=== PATIENT | female | born 1990 | race Caucasian/White ===

== ENCOUNTER 2022-05-06 17:36 | Emergency (ER) | payer MEDICAID ==
[~2022-05-06] VITALS: Ht 167.6 cm; Wt 52.2 kg
--- NOTE | 2022-05-06 17:55 | NUR ---
TO ER BED 4, C/O ON & OFF SOB AT NIGHT X 1 MONTH, AAOX3, BREATHING EVEN AND NON LABORED, AWAITING MD FLORES
[2022-05-06] MEDS ORDERED: IPRATROPIUM NEB FS 0.5 MG/2.5 ML AMPUL.NEB ONE (18:22)
[2022-05-06] MEDS ORDERED: ALBUTEROL FS 2.5 MG/3 ML VIAL.NEB ONE (18:22)
[2022-05-06] MEDS ORDERED: ALBUTEROL FS 2.5 MG/3 ML VIAL.NEB CONTNEB ONE (18:30)
[2022-05-06] MEDS ORDERED: IPRATROPIUM NEB FS 0.5 MG/2.5 ML AMPUL.NEB NEB ONE (18:30)
[2022-05-06] MEDS ORDERED: predniSONE 20 MG TABLET PO ONE (18:30)
[2022-05-06] MEDS ORDERED: predniSONE 20 MG TABLET ONE (18:45)
[2022-05-06] MEDS ORDERED: ALBU8.5H8 INH (19:04)
[2022-05-06] MEDS ORDERED: PRED50TA PO (19:04)
[2022-05-06 19:25] VITALS: BP 113/77
--- NOTE | 2022-05-06 19:25 | NUR ---
Patient discharged to home in stable condition. Written and verbal after care instructions given. Patient verbalizes understanding of instruction.
== END 2022-05-06 19:25 | disposition home or self-care (01) ==
LOC: ER 17:53
DX: R06.2 Wheezing (principal); Z79.899 Other long term (current) drug therapy
CPT/HCPCS: 99283; 71045; 94799; 94640; J7512

== ENCOUNTER 2022-06-27 03:42 | Emergency (ER) | payer MEDICAID ==
[~2022-06-27] VITALS: Ht 167.6 cm; Wt 52.2 kg
[~2022-06-27 03:42] MED LIST: ALBU8.5H8 INH; PRED50TA PO
--- NOTE | 2022-06-27 05:40 | NUR ---
Came from home this 31/f with cc stuffy nose/itchy mouth, woke up having SOB. Patient is AAOX4. Able to make needs known. Placed comfortably in bed. Vitals checked.
--- NOTE | 2022-06-27 06:29 | NUR ---
blood drawn and sent to lab
[2022-06-27 07:00] LABS: BASOPHILS # (AUTO) 0.1 K/uL (0.0-0.2); EOSINOPHILS % (AUTO) 13.7 % (0.0-6.0); HEMATOCRIT 42 % (33-45); HEMOGLOBIN 13.8 g/dL (11.5-14.8); LYMPHOCYTES # (AUTO) 1.8 K/uL (0.8-4.8); LYMPHOCYTES % (AUTO) 26.8 % (20.0-44.0); MEAN CORPUSCULAR HGB CONC 33 g/dl (31.0-36.0); MEAN CORPUSCULAR VOLUME 91 fL (82-100); MONOCYTES # (AUTO) 0.3 K/uL (0.1-1.30); MONOCYTES % (AUTO) 4.6 % (2.0-12.0); NEUTROPHILS # (AUTO) 3.5 K/uL (1.8-8.9); NEUTROPHILS % (AUTO) 53.9 % (43.0-81.0); PLATELET COUNT (AUTO) 269 K/uL (150-450); RED BLOOD CELL COUNT(AUTO) 4.58 MIL/uL (4.0-5.2); WHITE BLOOD COUNT (AUTO) 6.6 K/uL (4.3-11.0)
[2022-06-27 07:14] LABS: CALCIUM, SERUM 8.9 mg/dL (8.5-10.1); CARBON DIOXIDE 25 mmol/L (21-32); CHLORIDE 105 mmol/L (98-107); CREATININE 0.7 mg/dL (0.6-1.3); GLUCOSE 101 mg/dL (74-106); POTASSIUM 3.8 mmol/L (3.5-5.1); SODIUM SERUM 138 mmol/L (136-145); UREA NITROGEN, BLOOD 11 mg/dL (7-18)
[2022-06-27 07:26] LABS: ALANINE AMINOTRANSFERASE 16 U/L (12-78); ALBUMIN 3.9 g/dL (3.4-5.0); ALKALINE PHOSPHATASE 76 U/L (46-116); ASPARTATE AMINOTRANSFERASE 19 U/L (15-37); BILIRUBIN,DIRECT 0.1 mg/dL (0.0-0.2); BILIRUBIN,TOTAL 0.4 mg/dL (0.2-1.0); TOTAL PROTEIN, SERUM 7.3 g/dL (6.4-8.2)
--- NOTE | 2022-06-27 08:34 | NUR ---
RT CALLED FOR BREATHING TX
[2022-06-27] MEDS ORDERED: ALBU8.5H8 INH (08:43)
[2022-06-27] MEDS ORDERED: IPRATROPIUM NEB FS 0.5 MG/2.5 ML AMPUL.NEB NEB ONE (09:00)
[2022-06-27] MEDS ORDERED: ALBUTEROL FS 2.5 MG/3 ML VIAL.NEB NEB ONE (09:00)
[2022-06-27] MEDS ORDERED: ALBUTEROL FS 2.5 MG/3 ML VIAL.NEB ONE (09:08)
[2022-06-27] MEDS ORDERED: IPRATROPIUM NEB FS 0.5 MG/2.5 ML AMPUL.NEB ONE (09:08)
[2022-06-27 09:51] VITALS: BP 140/86
--- NOTE | 2022-06-27 09:56 | NUR ---
Patient discharged to home in stable condition. Written and verbal after care instructions given. Patient verbalizes understanding of instruction.
== END 2022-06-27 09:57 | disposition home or self-care (01) ==
LOC: ER 03:46
DX: R06.02 Shortness of breath (principal); Z79.51 Long term (current) use of inhaled steroids; Z79.899 Other long term (current) drug therapy
CPT/HCPCS: 36415; 71045-TC; 80048-TC; 80076-TC; 83880; 84484-TC; 84703-TC; 85025-TC; 85378-TC